=== PATIENT | male | born 1980 | race Hispanic/Latino ===

== ENCOUNTER 2022-12-09 12:58 | Emergency (ER) | payer SELFPAY ==
[2022-12-09] MEDS ORDERED: Boostrix 0.5 ML (Tdap) VIAL (>/=7 yrs of age) ONE (13:46)
[2022-12-09] MEDS ORDERED: cefTRIAXone (ROCEPHIN) 1 GM VIAL ONE (14:04)
[2022-12-09] MEDS ORDERED: Vancomycin 1.5 GRAM/300 ML BAG 1.5 GM in Premix Bag 1 BAG IVPB SCH (14:15)
== END 2022-12-09 16:08 | disposition home or self-care (01) ==
LOC: CSHERS 12:58
DX: L08.9 Local infection of the skin and subcutaneous tissue, unspecified (principal); E11.9 Type 2 diabetes mellitus without complications; F17.210 Nicotine dependence, cigarettes, uncomplicated
CPT/HCPCS: 90471; 90715; 96365; 96366; 96367; J0696; J3370

== ENCOUNTER 2024-04-19 11:30 | Emergency (ER) | payer SELFPAY ==
[2024-04-19] MEDS ORDERED: Fluorescein Opthalmic Strip ONE (11:50)
[2024-04-19] MEDS ORDERED: Proparacaine 0.5% Opth 15 ML BOT ONE (11:51)
[2024-04-19] MEDS ORDERED: Tetracaine 0.5% PF 4 ML BOT ONE (11:59)
== END 2024-04-19 16:02 | disposition home or self-care (01) ==
LOC: CSHERS 11:30
DX: S05.01XA Injury of conjunctiva and corneal abrasion without foreign body, right eye, initial encounter (principal); E11.9 Type 2 diabetes mellitus without complications; F17.290 Nicotine dependence, other tobacco product, uncomplicated; W45.8XXA Other foreign body or object entering through skin, initial encounter
CPT/HCPCS: 99283